=== PATIENT | female | born 1995 | race Caucasian/White ===

== ENCOUNTER 2019-06-27 06:09 | Emergency (ER) | payer OTHER ==
[~2019-06-27] VITALS: Ht 160 cm; Wt 72.6 kg
[2019-06-27] MEDS ORDERED: ZOFRAN8 MG PO (13:31)
[2019-06-27] MEDS ORDERED: DICY20TA PO (13:31)
== END 2019-06-27 13:42 | disposition home or self-care (01) ==
LOC: ER 06:09
DX: K52.89 Other specified noninfective gastroenteritis and colitis (principal)